=== PATIENT | male | born 1970 | race Caucasian/White ===

== ENCOUNTER 2021-12-31 16:21 | Inpatient (IN) | payer OTHER ==
--- NOTE | 2021-12-31 16:56 | ED ---
General Adult HPI - General Chief complaint: Chest Pain Stated complaint: chest pain, near syncope Time Seen by Provider: 12/31/21 16:30 Source: patient, RN notes reviewed, old records reviewed Mode of arrival: wheelchair Limitations: no limitations - History of Present Illness Initial comments: This a 51-year-old male who presents to the emergency department because he felt palpitations and left-sided his chest. Patient states happened once before but when awakened he did need to come to hospital. Patient states it wasn't going away so he decided come to the hospital. 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 Patient denies any chest pain. Patient denies any shortness of breath. Patient denies any lightheadedness dizziness. Patient denies headache patient has numbness weakness. Patient states he just took a couple Excedrin which has caffeine in it prior to this occurring. Patient states she doesn't want any drugs or take any Adderall. Patient denies any recent fever chills or cough. - Related Data Home Medications Medication Instructions Recorded Confirmed No Known Home Medications 12/31/21 12/31/21 Allergies Allergy/AdvReac Type Severity Reaction Status Date / Time No Known Allergies Allergy Verified 12/31/21 17:41 Review of Systems ROS Statement: Those systems with pertinent positive or pertinent negative responses have been documented in the HPI. ROS Other: All systems not noted in ROS Statement are negative. Past Medical History Past Medical History: No Reported History History of Any Multi-Drug Resistant Organisms: VRE Past Surgical History: No Surgical Hx Reported Past Psychological History: No Psychological Hx Reported Smoking Status: Current every day smoker Past Alcohol Use History: Daily Past Drug Use History: None Reported General Exam - General Exam Comments Initial Comments: GENERAL: Patient is well-developed and well-nourished. Patient is nontoxic and well- hydrated and is in no acute distress. ENT: Neck is soft and supple. No significant lymphadenopathy is noted. Oropharynx is clear. Moist mucous membranes. Neck has full range of motion without eliciting any pain EYES: The sclera were anicteric and conjunctiva were pink and moist. Extraocular movements were intact and pupils were equal round and reactive to light. Eyelids were unremarkable. PULMONARY: Unlabored respirations. Good breath sounds bilaterally. No audible rales rhonchi or wheezing was noted. CARDIOVASCULAR: Patient's heart rate is faster than 200 beats a minute. ABDOMEN: Soft and nontender with normal bowel sounds. No palpable organomegaly was noted. There is no palpable pulsatile mass. SKIN: Skin is clear with no lesions or rashes and otherwise unremarkable. NEUROLOGIC: Patient is alert and oriented x3. Cranial nerves II through XII are grossly intact. Motor and sensory are also intact. Normal speech, volume and content. Symmetrical smile. MUSCULOSKELETAL: Normal extremities with adequate strength and full range of motion. LYMPHATICS: No significant lymphadenopathy is noted PSYCHIATRIC: Normal psychiatric evaluation Limitations: no limitations Course Vital Signs 12/31/21 12/31/21 12/31/21 16:26 16:46 17:18 Temperature 98.5 F Pulse Rate 70 93 77 Pulse Rate [ 93 Administrative Resident ] Respiratory 16 18 18 Rate Blood Pressure 116/80 137/97 128/97 O2 Sat by Pulse 99 97 97 Oximetry Medical Decision Making - Medical Decision Making First EKG shows supraventricular tachycardia 229 bpm QRS is 86 QT interval is 184 QTC is 289. Patient's EKG shows some ST segment depression in the precordial leads V4 through V6. A modified Valsalva maneuver was done the patient converted to a sinus rhythm another EKG was done EKG showed a sinus rhythm at 86 bpm MA interval is 122 QRS is 120 QT intervals 365 QTC is 409. Patient's EKG shows some slight ST segment depression in precordial leads V4 V5 and V6. Patient also shows Q waves in leads 3 and aVF. Patient is a 30 EKG done and it showed sinus rhythm at 72 bpm MA interval 224 QRS 130 QT interval is 411 QTC is 435. 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 I spoke with Dr. Avendano wanted the patient admitted the hospital I admitted the patient to [facility] physician's the agreed to accept the admission I wrote admitting orders I consult cardiology. - Lab Data Result diagrams: 12/31/21 16:52 12/31/21 16:52 Lab Results 12/31/21 12/31/21 12/31/21 Range/Units 16:52 16:52 16:52 WBC 11.2 H (3.8-10.6) k/uL RBC 4.75 (4.30-5.90) m/uL Hgb 16.2 (13.0-17.5) gm/dL Hct 48.8 (39.0-53.0) % MCV 102.7 H (80.0-100.0) fL MCH 34.1 (25.0-35.0) pg MCHC 33.2 (31.0-37.0) g/dL RDW 11.9 (11.5-15.5) % Plt Count 314 (150-450) k/uL MPV 7.3 Neutrophils % 69 % Lymphocytes % 23 % Monocytes % 5 % Eosinophils % 1 % Basophils % 0 % Neutrophils # 7.7 (1.3-7.7) k/uL Lymphocytes # 2.6 (1.0-4.8) k/uL Monocytes # 0.6 (0-1.0) k/uL Eosinophils # 0.1 (0-0.7) k/uL Basophils # 0.0 (0-0.2) k/uL PT 10.5 (9.0-12.0) sec INR 1.0 (<1.2) APTT 23.5 (22.0-30.0) sec Sodium 137 (137-145) mmol/L Potassium 3.5 (3.5-5.1) mmol/L Chloride 103 (98-107) mmol/L Carbon Dioxide 25 (22-30) mmol/L Anion Gap 9 mmol/L BUN 17 (9-20) mg/dL Creatinine 0.99 (0.66-1.25) mg/dL Est GFR (CKD-EPI)AfAm >90 (>60 ml/min/1.73 sqM) Est GFR (CKD-EPI)NonAf 88 (>60 ml/min/1.73 sqM) Glucose 144 H (74-99) mg/dL Calcium 9.8 (8.4-10.2) mg/dL Magnesium (1.6-2.3) mg/dL Total Bilirubin 1.1 (0.2-1.3) mg/dL AST 31 (17-59) U/L ALT 21 (4-49) U/L Alkaline Phosphatase 67 (38-126) U/L Troponin I (0.000-0.034) ng/mL Total Protein 7.6 (6.3-8.2) g/dL Albumin 4.9 (3.5-5.0) g/dL Urine Opiates Screen (NotDetected) Ur Oxycodone Screen (NotDetected) Urine Methadone Screen (NotDetected) Ur Propoxyphene Screen (NotDetected) Ur Barbiturates Screen (NotDetected) U Tricyclic Antidepress (NotDetected) Ur Phencyclidine Scrn (NotDetected) Ur Amphetamines Screen (NotDetected) U Methamphetamines Scrn (NotDetected) U Benzodiazepines Scrn (NotDetected) Urine Cocaine Screen (NotDetected) U Marijuana (THC) Screen (NotDetected) 12/31/21 12/31/21 12/31/21 Range/Units 16:52 16:52 16:52 WBC (3.8-10.6) k/uL RBC (4.30-5.90) m/uL Hgb (13.0-17.5) gm/dL Hct (39.0-53.0) % MCV (80.0-100.0) fL MCH (25.0-35.0) pg MCHC (31.0-37.0) g/dL RDW (11.5-15.5) % Plt Count (150-450) k/uL MPV Neutrophils % % Lymphocytes % % Monocytes % % Eosinophils % % Basophils % % Neutrophils # (1.3-7.7) k/uL Lymphocytes # (1.0-4.8) k/uL Monocytes # (0-1.0) k/uL Eosinophils # (0-0.7) k/uL Basophils # (0-0.2) k/uL PT (9.0-12.0) sec INR (<1.2) APTT (22.0-30.0) sec Sodium (137-145) mmol/L Potassium (3.5-5.1) mmol/L Chloride (98-107) mmol/L Carbon Dioxide (22-30) mmol/L Anion Gap mmol/L BUN (9-20) mg/dL Creatinine (0.66-1.25) mg/dL Est GFR (CKD-EPI)AfAm (>60 ml/min/1.73 sqM) Est GFR (CKD-EPI)NonAf (>60 ml/min/1.73 sqM) Glucose (74-99) mg/dL Calcium (8.4-10.2) mg/dL Magnesium 1.9 (1.6-2.3) mg/dL Total Bilirubin (0.2-1.3) mg/dL AST (17-59) U/L ALT (4-49) U/L Alkaline Phosphatase (38-126) U/L Troponin I <0.012 (0.000-0.034) ng/mL Total Protein (6.3-8.2) g/dL Albumin (3.5-5.0) g/dL Urine Opiates Screen Not Detected (NotDetected) Ur Oxycodone Screen Not Detected (NotDetected) Urine Methadone Screen Not Detected (NotDetected) Ur Propoxyphene Screen Not Detected (NotDetected) Ur Barbiturates Screen Not Detected (NotDetected) U Tricyclic Antidepress Not Detected (NotDetected) Ur Phencyclidine Scrn Not Detected (NotDetected) Ur Amphetamines Screen Not Detected (NotDetected) U Methamphetamines Scrn Not Detected (NotDetected) U Benzodiazepines Scrn Not Detected (NotDetected) Urine Cocaine Screen Not Detected (NotDetected) U Marijuana (THC) Screen Detected H (NotDetected) Critical Care Time Critical Care Time: Yes Total Critical Care Time: 35 Disposition Clinical Impression: SVT (supraventricular tachycardia), WPW (Smwnw-Ocjtuesgi-Hznyh syndrome) Disposition: ADMITTED IP TO THIS HOSP Referrals: None,Stated [Primary Care Provider] - 1-2 days Time of Disposition: 18:04
[2021-12-31 17:16] LABS: Basophils % (A) 0 %; Eosinophils # (A) 0.1 k/uL (0-0.7); Eosinophils % (A) 1 %; HCT 48.8 % (39.0-53.0); HGB 16.2 gm/dL (13.0-17.5); Lymphocytes # (A) 2.6 k/uL (1.0-4.8); Lymphocytes % (A) 23 %; MCH 34.1 pg (25.0-35.0); MCHC 33.2 g/dL (31.0-37.0); MCV 102.7 fL (80.0-100.0); Mean Platelet Volume 7.3; Monocytes # (A) 0.6 k/uL (0-1.0); Monocytes % (A) 5 %; Neutrophils # (A) 7.7 k/uL (1.3-7.7); Neutrophils % (A) 69 %; Platelet Count 314 k/uL (150-450); RBC 4.75 m/uL (4.30-5.90); RDW 11.9 % (11.5-15.5); WBC 11.2 k/uL (3.8-10.6)
[2021-12-31 17:34] LABS: Partial Thromboplastin Time 23.5 sec (22.0-30.0); Prothrombin Time 10.5 sec (9.0-12.0)
[2021-12-31 17:41] LABS: ALT 21 U/L (4-49); AST 31 U/L (17-59); African American GFR (CKD) >90 (>60 ml/min/1.73 sqM); Albumin 4.9 g/dL (3.5-5.0); Alkaline Phosphatase 67 U/L (38-126); Anion Gap 9 mmol/L; Blood Urea Nitrogen 17 mg/dL (9-20); Calcium 9.8 mg/dL (8.4-10.2); Carbon Dioxide 25 mmol/L (22-30); Chloride 103 mmol/L (98-107); Glucose 144 mg/dL (74-99); Non-African American GFR(CKD) 88 (>60 ml/min/1.73 sqM); Potassium 3.5 mmol/L (3.5-5.1); Sodium 137 mmol/L (137-145); Total Bilirubin 1.1 mg/dL (0.2-1.3); Total Protein 7.6 g/dL (6.3-8.2)
[2021-12-31 18:01] LABS: Amphetamine Screen,Urine Not Detected (NotDetected); Barbiturate Screen,Urine Not Detected (NotDetected); Benzodiazepines Screen,Urine Not Detected (NotDetected); Cocaine Screen,Urine Not Detected (NotDetected); Methadone Screen, Urine Not Detected (NotDetected); Opiate Screen,Urine Not Detected (NotDetected); Oxycodone Screen, Urine Not Detected (NotDetected); Phencyclidine Screen,Urine Not Detected (NotDetected); Tricyclic Antidepressant,Urine Not Detected (NotDetected); Urn Cannabinoid Scrn Detected (NotDetected)
[2021-12-31] MEDS ORDERED: SODIUM CHLORIDE 0.9% 1,000 ML IV ONE (18:04)
--- NOTE | 2021-12-31 19:11 | XR ---
EXAMINATION: XR chest 2V DATE AND TIME: 12/31/2021 5:55 PM CLINICAL INDICATION: PHH; Chest Pain and tachycardia TECHNIQUE: Departmental protocol COMPARISON: None FINDINGS: The lungs are clear. The pleural spaces are negative. The cardiac silhouette is not enlarged. The remainder of the mediastinal silhouette is unremarkable. The skeletal structures and soft tissues are negative for acute findings. IMPRESSION: NO ACUTE PROCESS.
--- NOTE | 2021-12-31 21:47 | P.HPIM ---
History of Present Illness H&P Date: 12/31/21 The patient is a 51-year-old male with no known PMH who presents to the emergency room for palpitations, chest discomfort, and near-syncope. The patient reports that he was in his usual state of health, working at his job as a cook when he suddenly developed palpitations, sharp and pressure-like chest discomfort, and severe lightheadedness. A few minutes prior to the episode, he had taken an Excedrin from a friend for a migraine headaches. He fell down to his knees and subsequently laid down on the floor in the kitchen of the restaurant. He denied losing consciousness or experiencing shortness of breath. Reports that his symptoms persisted, for which his coworkers activated EMS. Upon arrival in the emergency room, EKG revealed SVT at 229 bpm. Modified Valsalva was performed with successful conversion of the rhythm to sinus. Repeat EKG revealed sinus rhythm at [address] segment depression in leads V4 to V6 and lead to, with Q waves in leads 2 and aVF. Another repeat EKG sh owing sinus rhythm at 72 bpm with a prominent delta wave, with no further ST segment depression previously seen in leads V4 to V6. The patient denies use of illicit substances aside from recreational marijuana. Reports having a similar episode 6 months ago, which resolved after taking some antacids. Also reports feeling at his baseline at the time of interview and denied any active complaints. Denies any history of cardiac problems. Laboratory evaluation was remarkable for WBC count 11.2, MCV 102.7, glucose 144. Chest x-ray was unremarkable. Review of systems: Pertinent positives and negatives as discussed in HPI, a complete review of systems was performed and all other systems are negative. Physical examination: General: non toxic, no distress, appears at stated age, normal weight Derm: no unusual rashes/lesions, warm Head: atraumatic, normocephalic, symmetric Eyes: EOMI, no lid lag, anicteric sclera, pupils equal round reactive to light ENT: Nose and ears atraumatic Neck: No cervical lymphadenopathy, trachea midline, supple Mouth: no lip lesion, mucus membranes moist Cardiovascular: S1S2 reg, no murmur, positive dorsalis pedis pulse bilateral, no edema Lungs: CTA bilateral, no rhonchi, no rales, no accessory muscle use Abdominal: soft, nontender to palpation, no guarding Ext: muscle strength 5 out of 5 in all 4 extremities grossly, no gross muscle atrophy, no contractures, Neuro: CN II-XI grossly intact, no gross focal neuro deficits Psych: Alert, oriented, appropriate affect Assessment/plan SVT with preexcitation, suspected [id number] -Case discussed with cardiology by the ED physician -Cardiac monitoring -Fall precautions -Echocardiogram -Follow-up thyroid studies Hyperglycemia -Check A1c Leukocytosis, likely secondary to acute stressor -No signs of active infection at this time -Monitor for now Macrocytosis -Check B12 and folate levels DVT prophylaxis -Heparin subcu The patient is admitted with an anticipated greater than 2 midnight stay for evaluation of SVT CODE STATUS: Full Code Discussed with: Patient Anticipated discharge date: 01/[address]: Home Past Medical History Past Medical History: No Reported History History of Any Multi-Drug Resistant Organisms: None Reported Past Surgical History: No Surgical Hx Reported Past Psychological History: No Psychological Hx Reported Smoking Status: Current every day smoker Past Alcohol Use History: Daily Additional Past Alcohol Use History / Comment(s): 1/2 pint etoh a day Past Drug Use History: None Reported - Past Family History Mother Family Medical History: No Reported History Father Family Medical History: No Reported History, Hypertension Medications and Allergies Home Medications Medication Instructions Recorded Confirmed Type No Known Home Medications 12/31/21 12/31/21 History Allergies Allergy/AdvReac Type Severity Reaction Status Date / Time No Known Allergies Allergy Verified 12/31/21 17:41 Physical Exam Vitals: Vital Signs Temp Pulse Pulse Resp BP BP Pulse Ox 12/31/21 19:30 98.2 F 64 16 144/90 12/31/21 18:51 98 F 12/31/21 18:46 84 18 124/100 100 12/31/21 17:18 77 18 128/97 97 12/31/21 16:46 93 93 18 137/97 97 12/31/21 16:26 98.5 F 70 16 116/80 99 Intake and Output 12/31/21 12/31/21 12/31/21 06:59 14:59 22:59 Intake Total 500 Balance 500 Intake: Oral 500 Other: Weight 58.967 kg Results CBC & Chem 7: 12/31/21 16:52 12/31/21 16:52 Labs: Abnormal Lab Results - Last 24 Hours (Table) 12/31/21 12/31/21 12/31/21 Range/Units 16:52 16:52 16:52 WBC 11.2 H (3.8-10.6) k/uL MCV 102.7 H (80.0-100.0) fL Glucose 144 H (74-99) mg/dL U Marijuana (THC) Screen Detected H (NotDetected) Thrombosis Risk Factor Assmnt - Choose All That Apply Any of the Below Risk Factors Present?: Yes Each Factor Represents 1 point: Age 41-60 years Other Risk Factors: No Other congenital or acquired thrombophilia - If yes, enter type in comment: No Thrombosis Risk Factor Assessment Total Risk Factor Score: 1 Thrombosis Risk Factor Assessment Level: Low Risk
[2022-01-01] MEDS: HEPARIN SODIUM,PORCINE/PF 5,000 UNIT/0.5 ML SYRINGE SQ SCH ×2 (01:09→09:47)
[2022-01-01 03:03] VITALS: TEMP 97.7
[2022-01-01 08:21] VITALS: RESP 16
--- NOTE | 2022-01-01 10:54 | CA ---
Transthoracic Echo Report Name: Connor Caputo Age: 51 Gender: M : 1970 Exam Date: 01/01/2022 08:34 Exam Location: [facility] Ht (in): 67 Wt (lb): 130 Ordering Physician: Kemi Mtz MD Attending/Referring Phys: Body Trimmer Upholsterer Mera Lee RDCS Procedure CPT: Indications: svt Cardiac Hx: Technical Quality: Fair Contrast 1: Total Dose (mL): Contrast 2: Total Dose (mL): MEASUREMENTS (Male / Female) Normal Values 2D ECHO LV Diastolic Diameter PLAX 4.0 cm 4.2 - 5.9 / 3.9 - 5.3 cm LV Systolic Diameter PLAX 3.0 cm IVS Diastolic Thickness 1.2 cm 0.6 - 1.0 / 0.6 - 0.9 cm LVPW Diastolic Thickness 1.6 cm 0.6 - 1.0 / 0.6 - 0.9 cm LV Relative Wall Thickness 0.7 RV Internal Dim ED PLAX 2.9 cm LA Volume 34.9 cm??? 18 - 58 / 22 - 52 cm??? M-MODE Aortic Root Diameter MM 3.1 cm LA Systolic Diameter MM 3.3 cm LA Ao Ratio MM 1.1 AV Cusp Separation MM 1.9 cm DOPPLER AV Peak Velocity 135.6 cm/s AV Peak Gradient 7.4 mmHg LVOT Peak Velocity 78.3 cm/s LVOT Peak Gradient 2.5 mmHg MV Area PHT 3.1 cm??? Mitral E Point Velocity 85.3 cm/s Mitral A Point Velocity 58.9 cm/s Mitral E to A Ratio 1.4 MV Deceleration Time 244.4 ms MV E' Velocity 11.2 cm/s Mitral E to MV E' Ratio 7.6 TR Peak Velocity 191.0 cm/s TR Peak Gradient 14.6 mmHg Right Ventricular Systolic Press 19.3 mmHg FINDINGS Left Ventricle Mildly increased left ventricular wall thickness. Normal left ventricular systolic function with no obvious regional wall motion abnormalities. Left ventricular ejection fraction is estimated at 50-55 %. Normal left ventricular diastolic filling pattern. Right Ventricle Normal right ventricular size and function. Right ventricular systolic pressure within normal limits. Right Atrium Normal right atrial size. Left Atrium Normal left atrial size. No evidence for an atrial septal defect. Mitral Valve Structurally normal mitral valve. Trace to mild mitral regurgitation. Aortic Valve Trileaflet aortic valve. No aortic valve stenosis or regurgitation. Tricuspid Valve Structurally normal tricuspid valve. Mild tricuspid regurgitation. Pulmonic Valve Structurally normal pulmonic valve. Trace pulmonic regurgitation. Pericardium No pericardial effusion. Aorta Normal size aortic root and proximal ascending aorta. CONCLUSIONS #1. Normal left ventricular size with preserved LV function. Mild concentric left ventricular hypertrophy. #2. Normal valve excursion with mild tricuspid regurgitation and mitral regurgitation Previewed by: Dr. Julius Pritchett MD (Electronically Signed) Final Date: 01 January 2022 10:53
--- NOTE | 2022-01-01 11:17 | P.CRDCN ---
History of Present Illness History of present illness: HISTORY OF PRESENTING ILLNESS This is a pleasant 51-year-old male with no significant past medical history. 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 We've been asked to see in consultation for SVT and WPW. Patient presents to the emergency department with an episode of palpitations and near syncope. He states he was at work, he felt as if he may have a migraine headache he took a co-workers Excedrin, a few minutes later had acute onset palpitations, pressure-like sensation in the center of his chest, felt as if he may pass out. Co-workers called EMS was transported to ER. EKG revealed Supraventricular tachycardia, AVNRT, HR 220s. Valsalva maneuver was performed in the ER patient converted to sinus mechanism. 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 Patient denies any history of CAD, NC, stroke, hypertension, dyslipidemia. She denies any family history of heart disease. He currently smoke marijuana and cigarettes. Drinks alcohol daily. DIAGNOSTICS Telemetry tracings indicate sinus rhythm with rates of 50s to 60s, PVCs noted. No further episodes of SVT Chest xray no acute cardiopulmonary process Echocardiogram: Normal left ventricular size with preserved LV function, mild concentric LVH, mild tricuspid regurgitation and mild mitral regurgitation Laboratory reviewed, WBC 7.2, hemoglobin 16.2, platelets 214, sodium 137, potassium 4.5, BUN 17, serum creatinine 0.9, magnesium 1.9, troponin negative, TSH within normal limits, urine tox positive for marijuana Current home cardiac medications include none REVIEW OF SYSTEMS At the time of my exam: CONSTITUTIONAL: Denies fever or chills. CARDIOVASCULAR: Denies chest pain, shortness of breath, orthopnea, PND or palpitations. RESPIRATORY: Denies cough. GASTROINTESTINAL: Denies abdominal pain, diarrhea, constipation, nausea or vomiting. MUSCULOSKELETAL: Denies myalgias. NEUROLOGIC: Denies numbness, tingling, headacbe or weakness. ENDOCRINE: Denies fatigue, weight change, polydipsia or polyurina. GENITOURINARY: Denies burning, hematuria or urgency with micturation. HEMATOLOGIC: Denies history of anemia or bleeding. PHYSICAL EXAMINATION Blood pressure 128/71, rate 69, afebrile, saturation 100% on room air CONSTITUTIONAL: No apparent distress. HEENT: Head is normocephalic. Pupils are equal, round. Sclerae anicteric. Mucous membranes of the mouth are moist. No JVD. No carotid bruit. CHEST EXAMINATION: Lungs are clear to auscultation. No chest wall tenderness is noted on palpation or with deep breathing. HEART EXAMINATION: Regular rate and rhythm. S1, S2 heard. No murmurs, gallops or rub. ABDOMEN: Soft, nontender. Positive bowel sounds. EXTREMITIES: 2+ peripheral pulses, no lower extremity edema and no calf tendern ess. NEUROLOGIC EXAMINATION: Patient is awake, alert and oriented x3. ASSESSMENT Supraventricular tachycardia Palomino Parkinson White syndrome Chronic nicotine dependence Daily alcohol use Marijuana use PLAN Patient evaluated by Dr. Ruiz, patient will need EP study and radiofrequency ablation which will be completed as an outpatient Discussed valsalva maneuver with the patient Smoking and alcohol cessation discussed and highly recommended Close follow up outpatient with Dr. Ruiz From a cardiology perspective, patient was discharged home today. Nurse practitioner note has been reviewed by physician. Signing provider agrees with the documented findings, assessment, and plan of care. Past Medical History Past Medical History: No Reported History History of Any Multi-Drug Resistant Organisms: None Reported Past Surgical History: No Surgical Hx Reported Past Psychological History: No Psychological Hx Reported Smoking Status: Current every day smoker Past Alcohol Use History: Daily Additional Past Alcohol Use History / Comment(s): 1/2 pint etoh a day Past Drug Use History: None Reported - Past Family History Mother Family Medical History: No Reported History Father Family Medical History: No Reported History, Hypertension Medications and Allergies Home Medications Medication Instructions Recorded Confirmed Type No Known Home Medications 12/31/21 12/31/21 History Allergies Allergy/AdvReac Type Severity Reaction Status Date / Time No Known Allergies Allergy Verified 12/31/21 17:41 Physical Exam Vitals: Vital Signs Temp Pulse Pulse Resp BP BP Pulse Ox 01/01/22 03:03 97.7 F 64 15 100/67 99 12/31/21 23:42 98.1 F 63 18 126/76 98 12/31/21 19:30 98.2 F 64 16 144/90 12/31/21 18:51 98 F 12/31/21 18:46 84 18 124/100 100 12/31/21 17:18 77 18 128/97 97 12/31/21 16:46 93 93 18 137/97 97 12/31/21 16:26 98.5 F 70 16 116/80 99 Intake and Output 12/31/21 01/01/22 01/01/22 22:59 06:59 14:59 Intake Total 500 Balance 500 Intake: Oral 500 Other: Weight 58.967 kg Results 12/31/21 16:52 12/31/21 16:52 Cardiac Enzymes 12/31/21 12/31/21 Range/Units 16:52 16:52 AST 31 (17-59) U/L Troponin I <0.012 (0.000-0.034) ng/mL Coagulation 12/31/21 Range/Units 16:52 PT 10.5 (9.0-12.0) sec APTT 23.5 (22.0-30.0) sec CBC 12/31/21 Range/Units 16:52 WBC 11.2 H (3.8-10.6) k/uL RBC 4.75 (4.30-5.90) m/uL Hgb 16.2 (13.0-17.5) gm/dL Hct 48.8 (39.0-53.0) % Plt Count 314 (150-450) k/uL Comprehensive Metabolic Panel 12/31/21 Range/Units 16:52 Sodium 137 (137-145) mmol/L Potassium 3.5 (3.5-5.1) mmol/L Chloride 103 (98-107) mmol/L Carbon Dioxide 25 (22-30) mmol/L BUN 17 (9-20) mg/dL Creatinine 0.99 (0.66-1.25) mg/dL Glucose 144 H (74-99) mg/dL Calcium 9.8 (8.4-10.2) mg/dL AST 31 (17-59) U/L ALT 21 (4-49) U/L Alkaline Phosphatase 67 (38-126) U/L Total Protein 7.6 (6.3-8.2) g/dL Albumin 4.9 (3.5-5.0) g/dL Current Medications Generic Name Dose Route Start Last Admin Trade Name Freq PRN Reason Stop Dose Admin Heparin Sodium (Porcine) 5,000 unit 01/01/22 00:00 01/01/22 01:09 Heparin Sodium,Porcine/Pf 5,000 Unit/0.5 Ml Syringe SQ Not Given Q8HR ARY Intake and Output 12/31/21 01/01/22 01/01/22 22:59 06:59 14:59 Intake Total 500 Balance 500 Intake: Oral 500 Other: Weight 58.967 kg 12/31/21 16:52 12/31/21 16:52
--- NOTE | 2022-01-01 12:03 | P.PN ---
Progress Note - Text Please see full dictation when is practitioner Baseline 12 EKG shows delta waves Upright in the inferior leads and in V1 and precordial leads SVT, while sounds were responsive, 239 beats a minute narrow QRS WW syndrome Detailed discussion the patient regarding the management afebrile. W Detailed discussion regarding EP study and ablation I will schedule him for the procedure Patient agreeable the plan In the interim if he has episodes, while sounds, no were recommended No medications
[2022-01-01 12:32] VITALS: BP 124/72; PULSE 59
[2022-01-01 13:03] LABS: HCT 49.7 % (39.0-53.0); HGB 16.3 gm/dL (13.0-17.5); MCH 33.8 pg (25.0-35.0); MCHC 32.7 g/dL (31.0-37.0); MCV 103.3 fL (80.0-100.0); Mean Platelet Volume 7.1; Platelet Count 318 k/uL (150-450); RBC 4.82 m/uL (4.30-5.90); RDW 11.2 % (11.5-15.5); WBC 8.5 k/uL (3.8-10.6)
--- NOTE | 2022-01-01 15:07 | P.DS ---
Providers Date of admission: 12/31/21 18:04 Expected date of discharge: 01/01/22 Attending physician: Ha Preston MD Consults: 12/31/21 18:04 Consult Physician Urgent Consulting Provider: [facility] Consult Reason/Comments: SVT,wpw Do you want consulting provider notified?: Yes Primary care physician: Stated None Hospital Course: Discharge Diagnosis: SVT with preexcitation Kgpvc-Qrlvpmmpp-Sxoze Syndrome Leukocytosis, resolved Daily alcohol abuse, drinking approximately a half a pint of alcohol daily, recommend cessation of all alcohol use Nicotine dependence. Strongly encourage patient to stop smoking Cannabis use. Patient reports recreational use, Encourage patient to stop use. Hospital Course: The patient is a very pleasant 51-year-old male with a past medical history of daily alcohol abuse, nicotine dependence, and cannabis use. Patient presented to the emergency department with a chief complaint of palpitations. Patient patient reported while at work he suddenly developed palpitations which were quickly accompanied by dizziness and chest pain bringing him down to his knees. EMS was called and patient was transferred to the emergency department. Upon arrival to the emergency department patient was found to be in SVT with a heart rate of 229 bpm. Modified Valsalva maneuver was performed successfully converting patient back to normal sinus rhythm. Repeat EKG revealed sinus rhythm at 72 bpm with a widened QRS of 130 ms and prominent delta waves. Labs were completed revealing mild leukocytosis with WBC count of 11.2, macrocytosis with MCV of 102.7, and mild postprandial hyperglycemia with glucose of 144. TSH 3.520, free T3 2 0.9, and total T3 of 93.2. Troponin less than 0.012. Electrolytes all within normal limits. UDS positive for marijuana. Chest x-ray negative for acute cardiopulmonary process. Patient was admitted under our services with consultation to cardiology for suspected Zulws-Irfhfnrht-Arqjh syndrome. Patient monitored overnight had no further episodes of SVT or palpitations. Patient reports full resolution of previously reported symptoms of palpitations, lightheadedness, and chest pain. Patient underwent evaluation by cardiology. Echocardiogram was completed revealing normal EF of 50-55% with mild tricuspid and mitral regurgitation. Patient has been cleared from cardiac standpoint for discharge at this time. Cardiology confirming diagnosis of Rhakz-Rxiyuimmb-Pzfbx syndrome and recommending patient to follow-up outpatient in their office as he will need to undergo EP study and cardiac ablation. Patient strongly encouraged to stop all alcohol use and to quit smoking. Patient is medically stable for discharge at this time and to follow up outpatient with Dr. Ruiz. Physical examination: Patient seen and examined at bedside. Vital signs reviewed and stable. General: Nontoxic, no distress and appears stated age. Thin build. Derm: Skin warm and dry, normal coloration for ethnicity. Head: Atraumatic, normocephalic and symmetric. Eyes: EOMs intact, no lid lag, and anicteric sclera Mouth: no lip lesions, mucus membranes moist Cardiovascular: regular rate and rhythm with normal S1S2, no murmur, positive posterior tibial pulses bilaterally, and cap refill < 2 seconds. Lungs: Respirations even, regular, and unlabored on room air. Lungs CTA bilaterally, no rhonchi, no rales, no wheezing, and no accessory muscle usage. Abdominal: soft, nontender to palpation, no guarding, no appreciable organomegaly Ext: ROM intact. No gross muscle atrophy, no edema, no contractures Neuro: Speech clear, face symmetrical and CN II-XII grossly intact with no noted focal neuro deficits Psych: Alert and oriented to person, place, time, and situation. Appropriate and pleasant affect. A total of 36 minutes of time were spent preparing this complex discharge summary. Pt was discharged on 01/01/22 at 2:50 PM I reviewed the documentation as provided by the PEARL above, who is the original author of this note. I agree with the documented assessment and plan, with the following changes: none Patient Condition at Discharge: Stable Plan - Discharge Summary Discharge Rx Participant: No New Discharge Prescriptions: No Action No Known Home Medications Discharge Medication List No Known Home Medications 12/31/21 [History] Follow up Appointment(s)/Referral(s): Jose Ruiz MD [STAFF PHYSICIAN] - 1 Week (office will call with appt.) Leopoldo Li MD [STAFF PHYSICIAN] - 1-2 Days Patient Instructions/Handouts: Mdymn-Vxveeiuwi-Soqpb Syndrome (DC) Activity/Diet/Wound Care/Special Instructions: Activity: As tolerated. Take breaks as needed. Diet: Heart healthy and carb consistent diet. Avoid salts, or foods with hidden salts such as canned or boxed foods and frozen dinners. Extra salt makes your heart work harder and traps the fluid in your body for longer. Special Instructions: Take all of your medications as directed and remember to keep all of your doctor's appointments and follow-up as needed. Remember as discussed with you. It is important to do Valsalva maneuver if you experience palpitations, if these the palpitations do not immediately go away with Valsalva maneuver it is of utmost importance to call 911 for transport to the hospital. Recommend cessation of all alcohol use. Strongly encourage you to stop smoking. You will need to follow up outpatient with electrical and instrumentation mechanic to have EP study and cardiac ablation completed. Your follow up will be with Dr. Ruiz. Thank you for allowing us to participate in your care, it was truly a pleasure having you for our patient!!! Discharge Disposition: HOME SELF-CARE
== END 2022-01-01 15:48 | disposition home or self-care (01) | DRG 310 ==
LOC: EC 16:21 → 3SCARD 18:04
PROVIDERS: ADMIT Internal Medicine; ATTEND Internal Medicine
PROC: 5A2204Z Restoration of Cardiac Rhythm, Single (ICD-10-PCS; principal; 2021-12-31)
DX: I45.6 Pre-excitation syndrome (principal); I47.1 Supraventricular tachycardia; D72.829 Elevated white blood cell count, unspecified; D75.89 Other specified diseases of blood and blood-forming organs; Z71.6 Tobacco abuse counseling; F17.210 Nicotine dependence, cigarettes, uncomplicated; F10.10 Alcohol abuse, uncomplicated; Z71.41 Alcohol abuse counseling and surveillance of alcoholic; F12.929 Cannabis use, unspecified with intoxication, unspecified; R73.9 Hyperglycemia, unspecified; Z28.310 Unvaccinated for COVID-19
CPT/HCPCS: 36415; 71046; 80053; 80306; 82607; 82747; 83036; 83735; 84443; 84480; 84481; 84484; 85025; 85027; 85610; 85730; 93005; 93306; 99291

== ENCOUNTER → 2022-03-12 | Outpatient (CLI) | payer OTHER ==
[2022-03-12 18:38] LABS: HCT 43.7 % (39.6-50.0); HGB 14.4 g/dL (13.0-17.0); MCH 33.5 pg (27.0-32.0); MCV 101.6 fL (80.0-97.0); Mean Platelet Volume 9.2 fL (9.5-12.2); NRBC Per 100 WBC 0 /100 WBCS (0.0-0.0); Platelet Count 288 X 10*3/uL (140-440); RDW 11.9 % (11.5-14.5); WBC 7.53 X 10*3/uL (4.50-10.00)
[2022-03-12 19:43] LABS: Anion Gap 6.2 mmol/L (10.00-18.00); Blood Urea Nitrogen 10.9 mg/dL (9.0-27.0); Carbon Dioxide 30.8 mmol/L (20.0-27.5); Non-African American GFR(CKD) 99.2 (60.0-200.0); Potassium 4.7 mmol/L (3.5-5.5)
== END | disposition home or self-care (01) ==
LOC: LABPAT 12:49
PROVIDERS: ATTEND Internal Medicine Clinical Cardiac Electrophysiology
DX: Z01.812 Encounter for preprocedural laboratory examination (principal); I47.1 Supraventricular tachycardia
CPT/HCPCS: 80051; 82565; 84520; 85027; 85610

== ENCOUNTER 2022-04-20 14:51 | Emergency (ER) | payer OTHER ==
[2022-04-20 15:41] VITALS: BP 149/91; PULSE 78; RESP 20; TEMP 97.6
[2022-04-20] MEDS ORDERED: dexAMETHasone 2 MG TAB PO STA (17:11)
[2022-04-20] MEDS ORDERED: AZITHROMYCIN 500 MG TAB PO STA (17:11)
--- NOTE | 2022-04-20 17:12 | ED ---
General Adult HPI - General Chief complaint: Upper Respiratory Infection Stated complaint: Covid test Time Seen by Provider: 04/20/22 16:40 Source: patient, RN notes reviewed, old records reviewed Mode of arrival: ambulatory Limitations: no limitations - History of Present Illness Initial comments: Patient is a 51-year-old male who presents emergency department seeking Covid test. Has noticed some upper respiratory congestion for over 5 days. 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 Endorses chronic back pain. He endorses denies fatigue. Denies fevers. Denies chills. States he overall is feeling better. Previously was workup that is resolved. Denies nausea or vomiting. Denies diarrhea. Denies chest pain. I evaluated the patient when he was placed in [facility]. - Related Data Previous Rx's Medication Instructions Recorded Azithromycin [Zithromax] 250 mg PO DAILY 4 Days #4 tab 04/20/22 Allergies Allergy/AdvReac Type Severity Reaction Status Date / Time No Known Allergies Allergy Verified 03/11/22 11:44 Review of Systems ROS Statement: Those systems with pertinent positive or pertinent negative responses have been documented in the HPI. Review of Systems: CONST: Denies fever EYES: Denies blurry vision ENT: Endorses nasal congestion C/V: Denies Chest pain RESP: Denies shortness of breath GI: Denies abdominal pain : Denies dysuria SKIN: Denies rash. MSK: Denies joint pain. NEURO: Denies headache ROS Other: All systems not noted in ROS Statement are negative. Past Medical History Past Medical History: Supraventricular Tachycardia (SVT) Additional Past Medical History / Comment(s): SVT-WPW SYNDROME History of Any Multi-Drug Resistant Organisms: None Reported Past Surgical History: No Surgical Hx Reported Past Anesthesia/Blood Transfusion Reactions: No Reported Reaction Past Psychological History: No Psychological Hx Reported Smoking Status: Current every day smoker Past Alcohol Use History: Occasional Past Drug Use History: None Reported - Past Family History Mother Family Medical History: No Reported History Father Family Medical History: No Reported History, Hypertension General Exam - General Exam Comments Initial Comments: General: Appears in no acute distress. HEAD: Normal with no signs of head trauma. EYES: EOMI ENT: Normal oropharynx RESPIRATORY: Clear breath sounds bilaterally. No wheezes, rales, or rhonchi. No hypoxia. No increased work of breathing. C/V: Regular rate and rhythm. S1 and S2 auscultated, no edema, peripheral pulses 2+ and intact throughout ABD: Abd is soft, nontender, nondistended EXT: Normal range of motion, no obvious deformity SKIN: No rashes or lesions observed on exposed skin. NEURO: Alert and oriented 4. Limitations: no limitations Course Vital Signs 04/20/22 15:37 Temperature 97.6 F Pulse Rate 78 Respiratory 20 Rate Blood Pressure 149/91 O2 Sat by Pulse 99 Oximetry Medical Decision Making - Medical Decision Making Based on the patient's presentation and physical exam, I'm concerned for an upper respiratory illness for the patient. Covid swab was obtained in triage and is negative. Exam is otherwise unremarkable. Normal vital signs. I did offer the patient an x-ray, however he does state that he is feeling improved and declines a chest x-ray at this time. I did offer him steroids as well as an antibiotic which he accepted. He likely is experiencing an upper respiratory infection but since this is day 6 at this time, we will empirically treat him. He was in agreement this plan. Strict return precautions were discussed. Patient will be discharged home at this time. I will provide the patient with a prescription for azithromycin. I instructed the patient to follow up with their PCP in the next 1-3 days. I explained that the patient should return to the emergency department if they experience any worsening symptoms. Strict return precautions were discussed with the patient. The patient expressed understanding of these instructions. I answered all questions that the patient had. The patient was discharged home in good condition with their prescriptions and follow up information. - Lab Data Lab Results 04/20/22 Range/Units 15:38 Coronavirus (PCR) Not Detected (Not Detectd) Disposition Clinical Impression: Upper respiratory tract infection Disposition: HOME SELF-CARE Condition: Good Instructions (If sedation given, give patient instructions): Upper Respiratory Infection (ED) Prescriptions: Azithromycin [Zithromax] 250 mg PO DAILY 4 Days #4 tab Is patient prescribed a controlled substance at d/c from ED?: No Referrals: None,Stated [Primary Care Provider] - 1-2 days Time of Disposition: 17:05
== END 2022-04-20 17:40 | disposition home or self-care (01) ==
LOC: EC 14:51
DX: J06.9 Acute upper respiratory infection, unspecified (principal); F17.200 Nicotine dependence, unspecified, uncomplicated; Z20.822 Contact with and (suspected) exposure to COVID-19
CPT/HCPCS: 87635; 99283; J8540

== ENCOUNTER 2022-12-14 16:55 | Emergency (ER) | payer OTHER ==
[2022-12-14 17:05] VITALS: BP 129/86; PULSE 74; RESP 16; TEMP 98.8
[2022-12-14] MEDS ORDERED: TRANEXAMIC ACID 1,000 MG/10 ML VIAL IRRIGATION ONE (18:04)
--- NOTE | 2022-12-14 18:44 | ED ---
General Adult HPI - General Chief complaint: Wound/Laceration Stated complaint: Lt hand injury Time Seen by Provider: 12/14/22 17:42 Source: patient, RN notes reviewed Mode of arrival: ambulatory Limitations: no limitations - History of Present Illness Initial comments: 52-year-old male with no significant past medical history presents the emergency department with a chief complaint left thumb laceration. 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 He reports increased bleeding. Numbness, tingling, weakness denies anticoagulant use. Has not taken anything for his symptoms. He is up-to-date on his tetanus vaccination. - Related Data Home Medications Medication Instructions Recorded Confirmed No Known Home Medications 04/30/22 04/30/22 Allergies Allergy/AdvReac Type Severity Reaction Status Date / Time No Known Allergies Allergy Verified 12/14/22 17:03 Review of Systems ROS Statement: Those systems with pertinent positive or pertinent negative responses have been documented in the HPI. ROS Other: All systems not noted in ROS Statement are negative. Past Medical History Past Medical History: Supraventricular Tachycardia (SVT) Additional Past Medical History / Comment(s): SVT-WPW SYNDROME History of Any Multi-Drug Resistant Organisms: None Reported Past Surgical History: No Surgical Hx Reported Past Anesthesia/Blood Transfusion Reactions: No Reported Reaction Past Psychological History: No Psychological Hx Reported Past Alcohol Use History: Occasional Past Drug Use History: None Reported - Past Family History Mother Family Medical History: No Reported History Father Family Medical History: No Reported History, Hypertension General Exam - General Exam Comments Initial Comments: General: Alert, in no acute distress Head: atraumatic normocephalic. Eyes PERRL, EOMI intact, mucous membranes moist Respiratory: Lungs clear to auscultation bilaterally Cardiovascular: Heart rate regular rate and rhythm Abdominal: Soft without guarding or rebound Extremities: Normal inspection with full range of motion and normal capillary refill, left thumb with superficial laceration that is actively bleeding is noted. Full Range of motion 2+ radial pulses Neuroogic: alert and oriented 3, CN II-XII intact, able to ambulate with steady gait Skin: warm dry and intact with normal color Limitations: no limitations Course Vital Signs 12/14/22 12/14/22 17:03 19:46 Temperature 98.8 F Pulse Rate 74 Respiratory 16 16 Rate Blood Pressure 129/86 O2 Sat by Pulse 98 Oximetry Medical Decision Making - Medical Decision Making Was pt. sent in by a medical professional or institution ([facility], [employer], urgent care, hospital, or custodial...) When possible be specific @ -[No] Did you speak to anyone other than the patient for history (EMS, parent, family, police, friend...)? What history was obtained from this source @ -[No] Did you review nursing and triage notes (agree or disagree)? Why? @ -[I reviewed and agree with nursing and triage notes] Were old charts reviewed (outside hosp., previous admission, EMS record, old EKG, old radiological studies, urgent care reports/EKG's, custodial records)? Report findings @ -[No old charts were reviewed] Differential Diagnosis (chest pain, altered mental status, abdominal pain women, abdominal pain men, vaginal bleeding, weakness, fever, dyspnea, syncope, headache, dizziness, GI bleed, back pain, seizure, CVA, palpatations, mental health, musculoskeletal)? @ -[not applicable] EKG interpreted by me (3pts min.). @ -[As above] X-rays interpreted by me (1pt min.). @ -[None done] CT interpreted by me (1pt min.). @ -[None done] U/S interpreted by me (1pt. min.). @ -[None done] What testing was considered but not performed or refused? (CT, X-rays, U/S, labs)? Why? @ -[None] What meds were considered but not given or refused? Why? @ -[None] Did you discuss the management of the patient with other professionals (professionals i.e. [facility], [employer], lab, RT, psych nurse, licensed clinical social worker, mainstreaming facilitator, teacher, loan service officer, casey saw operator)? Give summary @ -[No] Was smoking cessation discussed for >3mins.? @ -[No] Was critical care preformed (if so, how long)? @ -[No] Were there social determinants of health that impacted care today? How? (Homelessness, low income, unemployed, alcoholism, drug addiction, transportation, low edu. Level, literacy, decrease access to med. care, long-term, rehab)? @ -[No] Was there de-escalation of care discussed even if they declined (Discuss DNR or withdrawal of care, Hospice)? DNR status @ -[No] What co-morbidities impacted this encounter? (DM, HTN, Smoking, COPD, CAD, Cancer, CVA, ARF, Chemo, Hep., AIDS, mental health diagnosis, sleep apnea, morbid obesity)? @ -[None] Was patient admitted / discharged? Hospital course, mention meds given and route, prescriptions, significant lab abnormalities, going to OR and other pertinent info. @ Charge. 52-year-old male who presents to the emergency department with left thumb laceration. Physical exam reveals left thumb with superficial laceration with active bleeding. TXA was applied bleeding controlled. Tube gauze applied. Return precautions were discussed at length. Patient discharged in stable condition. Case discussed with Dr. Rebolledo Niesha who agrees with plan of care Undiagnosed new problem with uncertain prognosis? @ -[No] Drug Therapy requiring intensive monitoring for toxicity (Heparin, Nitro, Insulin, Cardizem)? @ -[No] Were any procedures done? @ -[No] Diagnosis/symptom? @ - Left thumb laceration Acute, or Chronic, or Acute on Chronic? @ -acute Uncomplicated (without systemic symptoms) or Complicated (systemic symptoms)? @ -uncomplicated Side effects of treatment? @ -[No] Exacerbation, Progression, or Severe Exacerbation? @ -[No] Poses a threat to life or bodily function? How? (Chest pain, USA, DC, pneumonia, PE, COPD, DKA, ARF, appy, cholecystitis, CVA, Diverticulitis, Homicidal, Suicidal, threat to staff... and all critical care pts) @ -low likelihood Disposition Clinical Impression: Laceration Disposition: HOME SELF-CARE Condition: Stable Instructions (If sedation given, give patient instructions): Laceration (ED) Additional Instructions: Please return to the nearest emergency department symptoms worsen or persist Is patient prescribed a controlled substance at d/c from ED?: No Referrals: None,Stated [Primary Care Provider] - 1-2 days Time of Disposition: 18:43
[2022-12-14] MEDS ORDERED: LIDOCAINE-PRILOCAINE 2.5-2.5% CREAM 5 GM TUBE TOPICAL STA (19:06)
== END 2022-12-14 19:47 | disposition home or self-care (01) ==
LOC: EC 16:55
DX: S61.012A Laceration without foreign body of left thumb without damage to nail, initial encounter (principal); W26.9XXA Contact with unspecified sharp object(s), initial encounter; Y92.89 Other specified places as the place of occurrence of the external cause; Y93.G3 Activity, cooking and baking; Y99.0 Civilian activity done for income or pay
CPT/HCPCS: 99282